=== PATIENT | female | born 1960 | race Two or more races ===

== ENCOUNTER 2021-11-13 11:00 | Emergency (ER) | payer OTHER ==
[~2021-11-13] VITALS: Ht 162.6 cm; Wt 90.7 kg
[2021-11-13] MEDS ORDERED: PROAIR HFA8.5 GM IH (15:03)
== END 2021-11-13 15:01 | disposition home or self-care (01) ==
LOC: ER 11:00
DX: B34.9 Viral infection, unspecified (principal); J45.998 Other asthma; M81.8 Other osteoporosis without current pathological fracture

== ENCOUNTER 2024-09-17 09:30 | Emergency (ER) | payer OTHER ==
[~2024-09-17] VITALS: Ht 157.5 cm; Wt 65.8 kg
[~2024-09-17 09:30] MED LIST: PROAIR HFA8.5 GM IH
[2024-09-17 09:42] VITALS: BP 143/85; O2SAT 95
[2024-09-17] MEDS ORDERED: METHYLPREDNISOLONE SOD SUCC 40 MG VIAL IM ONE (10:30)
[2024-09-17] MEDS ORDERED: LEVALBUTEROL HCL 1.25 MG/3 ML SOLUTION IH ONE (10:30)
[2024-09-17] MEDS ORDERED: BENZONATATE 100 MG CAPSULE PO ONE (10:30)
[2024-09-17] MEDS ORDERED: FAMOtidine 10 MG/ML (4ML VIAL) IV ONE (10:30)
[2024-09-17] MEDS ORDERED: 0.9 % SODIUM CHLORIDE 500 ML IV ONE (10:30)
[2024-09-17] MEDS ORDERED: ACETAMINOPHEN 325 MG TABLET PO ONE (10:30)
[2024-09-17 11:20] LABS: HEMATOCRIT 35.6 % (36.0-45.00); HEMOGLOBIN 12.3 g/dL (12.0-15.00); MEAN CELL VOLUME 84.3 fL (80.00-100.00); MEAN CORPUSCULAR HEMOGLOBIN 29.2 pg (27.00-32.0); MEAN CORPUSCULAR HGB CONC 34.6 g/dl (32.0-36.0); PLATELET COUNT 212 K/uL (150-450); RED BLOOD COUNT 4.22 M/uL (4.00-6.00); RED CELL DISTRIBUTION WIDTH 13.5 % (11.5-14.5)
[2024-09-17 12:11] LABS: PH,URINE 5.5 (5.0-8.0); URINE APPEARANCE Clear; URINE BILIRRUBIN Negative (NEGATIVE); URINE BLOOD Negative; URINE COLOR Yellow; URINE GLUCOSE Negative (NEGATIVE); URINE KETONE Negative (NEGATIVE); URINE LEUKOCYTE Trace; URINE NITRATE Negative; URINE PROTEIN Negative (NEGATIVE)
[2024-09-17 12:16] LABS: URINE BACTERIA 52.9 uL (0.0-1933); URINE EPITHELIAL CELLS 10.5 uL (0.0-38.8); URINE RBC 5.9 uL (0.0-20.8); URINE WBC 14.8 uL (0.0-23.2)
[2024-09-17 12:34] LABS: URINE CAST 0.15 uL (0.0-1.40)
[2024-09-17] MEDS ORDERED: ZYRTEC10 MG PO (13:07)
[2024-09-17] MEDS ORDERED: PEPCID AC20 MG PO (13:07)
[2024-09-17] MEDS ORDERED: BACTRIM DS TAB1 EACH PO (13:07)
[2024-09-17] MEDS ORDERED: BENZONATATE200 M1 PO (13:07)
== END 2024-09-17 14:22 | disposition home or self-care (01) ==
LOC: ER 09:32
PROVIDERS: General Practice
DX: J00 Acute nasopharyngitis [common cold] (principal); Z88.8 Allergy status to other drugs, medicaments and biological substances; M19.90 Unspecified osteoarthritis, unspecified site; J45.909 Unspecified asthma, uncomplicated; M81.8 Other osteoporosis without current pathological fracture; Z20.822 Contact with and (suspected) exposure to COVID-19
CPT/HCPCS: 36415; 71046; 96365; 96372; 99283; J3490; J7030

== ENCOUNTER 2024-10-20 09:30 | Emergency (ER) | payer OTHER ==
[~2024-10-20] VITALS: Ht 157.5 cm; Wt 65.8 kg
[~2024-10-20 09:30] MED LIST changes: +BACTRIM DS TAB1 EACH PO; +BENZONATATE200 M1 PO; +PEPCID AC20 MG PO; +ZYRTEC10 MG PO
[2024-10-20] MEDS ORDERED: SINGULAIR10 MG PO (09:56)
[2024-10-20] MEDS ORDERED: LORATADINE 10 MG TABLET PO ONE (10:30)
[2024-10-20] MEDS ORDERED: BENZONATATE 100 MG CAPSULE PO ONE (10:30)
[2024-10-20] MEDS ORDERED: METHYLPREDNISOLONE SOD SUCC 40 MG VIAL IM ONE (10:30)
[2024-10-20] MEDS ORDERED: GUAIFENESIN 200 MG/10 ML BLIST.PACK PO ONE (10:30)
[2024-10-20] MEDS ORDERED: LEVALBUTEROL HCL 0.63 MG/3 ML SOLUTION IH ONE (10:30)
[2024-10-20] MEDS ORDERED: IPRATROPIUM BROMIDE 0.5 MG/2.5 ML AMPUL.NEB IH ONE (10:30)
[2024-10-20 12:09] LABS: HEMATOCRIT 37.3 % (36.0-45.00); HEMOGLOBIN 12.6 g/dL (12.0-15.00); MEAN CELL VOLUME 85.5 fL (80.00-100.00); MEAN CORPUSCULAR HEMOGLOBIN 28.8 pg (27.00-32.0); MEAN CORPUSCULAR HGB CONC 33.7 g/dl (32.0-36.0); PLATELET COUNT 190 K/uL (150-450); RED BLOOD COUNT 4.36 M/uL (4.00-6.00); RED CELL DISTRIBUTION WIDTH 13.2 % (11.5-14.5)
[2024-10-20 12:45] LABS: URINE APPEARANCE Turbid; URINE BILIRRUBIN Negative (NEGATIVE); URINE BLOOD Negative; URINE COLOR Dark Yellow; URINE GLUCOSE Negative (NEGATIVE); URINE KETONE Negative (NEGATIVE); URINE LEUKOCYTE Small; URINE NITRATE Negative; URINE PROTEIN 30 (NEGATIVE)
[2024-10-20 12:49] LABS: URINE BACTERIA 570.7 uL (0.0-1933); URINE EPITHELIAL CELLS 47.9 uL (0.0-38.8); URINE RBC 10.6 uL (0.0-20.8); URINE WBC 39.7 uL (0.0-23.2)
[2024-10-20 13:25] LABS: URINE CAST 0.15 uL (0.0-1.40)
[2024-10-20 13:27] LABS: URINE CRYSTALS MANY /HPF
[2024-10-20] MEDS ORDERED: OSEL75CA PO (13:44)
[2024-10-20] MEDS ORDERED: BUTALB-ACETAMI1 EACH PO (13:44)
== END 2024-10-20 13:50 | disposition home or self-care (01) ==
LOC: ER 09:32
PROVIDERS: General Practice
DX: J10.1 Influenza due to other identified influenza virus with other respiratory manifestations (principal); Z88.8 Allergy status to other drugs, medicaments and biological substances; M19.90 Unspecified osteoarthritis, unspecified site; J45.909 Unspecified asthma, uncomplicated; Z20.822 Contact with and (suspected) exposure to COVID-19